=== PATIENT | male | born 1965 | race Caucasian/White ===

== ENCOUNTER 2018-03-07 18:40 | Emergency (ER) | payer OTHER ==
[~2018-03-07] VITALS: Ht 165.1 cm; Wt 86.4 kg
[2018-03-07] MEDS ORDERED: KETOROLAC TROMETHAMINE 60 MG/2 ML VIAL IM ONE (20:30)
[2018-03-07] MEDS ORDERED: CYCLOBENZAPRINE HCL 10 MG TABLET PO ONE (20:30)
[2018-03-07 20:49] VITALS: BP 150/98
== END 2018-03-07 21:06 | disposition home or self-care (01) ==
LOC: EMS 18:42
DX: S39.012A Strain of muscle, fascia and tendon of lower back, initial encounter (principal); V49.59XA Passenger injured in collision with other motor vehicles in traffic accident, initial encounter; Y93.89 Activity, other specified; Y92.481 Parking lot as the place of occurrence of the external cause; Y99.8 Other external cause status
CPT/HCPCS: 96372; 99283; J1885